=== PATIENT | female | born 1960 | race Caucasian/White ===

== ENCOUNTER 2022-03-20 01:42 | Emergency (ER) | payer BC, SELFPAY ==
[2022-03-20 01:56] VITALS: BP 192/92; PULSE 96; RESP 16; TEMP 37.1; O2SAT 98; BMI 26.6
--- NOTE | 2022-03-20 02:07 | ED_ITS ---
HPI - General Adult General Chief complaint: Extremity Injury, Upper Stated complaint: right shoulder pain Time Seen by Provider: 03/20/22 01:46 Source: patient and family Mode of arrival: Ambulatory Limitations: no limitations History of Present Illness HPI narrative: 61-year-old female is here for evaluation of right shoulder pain. She is visiting the area. She recently fluid and air craft. Afterwards started to have right-sided upper back/shoulder discomfort and is now having discomfort on the front and lateral portion of her right shoulder. There was no specific incident that caused the discomfort. Is now having problems with moving her shoulder. Has tried Tylenol ibuprofen an aspirin without any improvement. No fevers. Her right wrist and right elbow unremarkable. No chest discomfort. No skin changes. Related Data Allergies Allergy/AdvReac Type Severity Reaction Status Date / Time Sulfa (Sulfonamide Allergy Hives Verified 03/20/22 01:55 Antibiotics) Review of Systems Constitutional Constitutional: Reports system reviewed and no additional complaints, except as documented Musculoskeletal Musculoskeletal: Reports system reviewed and no additional complaints, except as documented Integumentary/Breasts Skin/Breast: Reports system reviewed and no additional complaints, except as documented Neurologic Neurologic: Reports system reviewed and no additional complaints, except as documented Hematologic/Lymphatic On Anticoagulants: No Patient History Medical History Healthy adult Social History Smoking Status: Never smoker Smoking Status: Never smoker Substance Use Type: does not use Exam Initial Vital Signs Initial Vital Signs: Vital Signs Temperature 98.7 F 03/20/22 01:56 Pulse Rate 96 H 03/20/22 01:56 Respiratory Rate 16 03/20/22 01:56 Blood Pressure 192/92 H 03/20/22 01:56 Pulse Oximetry 98 03/20/22 01:56 Oxygen Delivery Method 03/20/22 01:56 HENCA Head: normal to inspection and normocephalic Resp Effort & Inspection: normal respiratory effort Cardio Pulses: radial pulses present on the right Skin General: no rashes or lesions noted Neuro Sensory Exam: no sensory deficits noted Extrem Other: Right elbow and right wrist are unremarkable. Has tenderness along the lateral aspect of the right shoulder. Not specifically over the AC joint however more so over the deltoid. No tenderness along the biceps tendon. No tenderness along the supraspinatus or infraspinatus muscle bellies. No tenderness along the rhomboids. No tenderness over the clavicle. No tenderness over the p ectoralis muscle. Has fairly extreme discomfort with any movement of the right shoulder. There is an area of pinpoint tenderness along the anterior lateral aspect of the right shoulder. Course Orders Ordered: ED Orders 03/20/22 03:31 XR shoulder RT min 2V Stat Discontinued Medications Hydrocodone Bitart/Acetaminophen (Hydrocodone/Acet 5/325 Tablet) 1 tab PO NOW ONE Stop: 03/20/22 02:09 Last Admin: 03/20/22 02:13 Dose: 1 tab Documented By: STEF Hydrocodone Bitart/Acetaminophen (Hydrocodone/Acet 5/325 Prepack) 1 bottle MISC SEEINSTR ONE Stop: 03/20/22 04:07 Last Admin: 03/20/22 04:12 Dose: 1 bottle Documented By: STEF Cyclobenzaprine HCl (Cyclobenzaprine 10 Mg Prepack) 1 bottle MISC SEEINSTR ONE Stop: 03/20/22 04:07 Last Admin: 03/20/22 04:12 Dose: 1 bottle Documented By: STEF Hydromorphone HCl (Hydromorphone 1 Mg Inj) 1 mg IM NOW ONE Stop: 03/20/22 02:47 Last Admin: 03/20/22 02:57 Dose: 1 mg Documented By: ANNE-MARIE Ondansetron HCl (Ondansetron 4 Mg Odt) 4 mg SL NOW ONE Stop: 03/20/22 02:47 Last Admin: 03/20/22 02:57 Dose: 4 mg Documented By: ANNE-MARIE Vital Signs Vital signs: Vital Signs - 8 hr 03/20/22 01:56 03/20/22 04:19 Temperature 98.7 F Pulse Rate 96 H 78 Respiratory Rate 16 17 Blood Pressure 192/92 H 166/76 H Pulse Oximetry 98 96 Oxygen Delivery Method Room Air Room Air Medical Decision Making Imaging Data Extremity x-ray #1: Radiologist's Impression: Normal right shoulder MDM Narrative Medical decision making narrative: Attempted a trigger point injection as she did seem to have an area of maximal tenderness along the anterior lateral aspect. 2 cc of 2% lidocaine were injected in this area and the patient had no improvement of symptoms. Oral pain medication unhelpful as well. Was given Dilaudid and this seemed to help her symptoms somewhat however she did seem to have waves of discomfort. Still had quite a bit of discomfort with any sort of movement. X-ray shows no signs of fracture. I do have a very strong suspicion this is musculoskeletal based on her presentation today however I did inform her that there could be other etiologies such as an infection although she is afebrile and there is no skin changes over the area. We will hold on blood work for now and treat this conservatively however the patient and her who is at bedside were informed that if her symptoms do not improve with these measures she does need to be re-evaluated and potentially have lab work performed. She expressed understanding and agreement. Discharge Plan Departure Patient Disposition: Home Clinical Impression: Right shoulder pain Instructions: How to Use a Sling, DI for Shoulder Pain Activity Restrictions/Additional Instructions: The x-ray today did not show any signs of a fracture. I have a very high suspicion that this is just a muscular issue most likely caused by your travel however there are other potential issues such as infections which given your presentation today I feel is unlikely. Take the medications as directed however if you start to develop fevers or skin changes or if your symptoms are not improving you do need to be re-evaluated. Visit Report Forms: Patient Portal/API
[2022-03-20] MEDS: HYDROCODONE/ACET 5/325 TABLET 1 TAB PO (02:13)
[2022-03-20] MEDS: ONDANSETRON 4 MG ODT SL (02:57)
[2022-03-20] MEDS: HYDROMORPHONE 1 MG INJ IM (02:57)
--- NOTE | 2022-03-20 03:31 | DI.RAD.S_ITS ---
PROCEDURE: XR SHOULDER RT MIN 2V INDICATIONS: pain with movement TECHNIQUE: 3 views of the shoulder were acquired. COMPARISON: None. FINDINGS: Bones: No fractures or dislocations. Mild acromioclavicular joint and glenohumeral joint osteoarthritic changes are seen with joint space narrowing and subchondral sclerosis. No suspicious bony lesions. Visualized ribs appear intact. Soft tissues: No suspicious soft tissue calcifications. IMPRESSION: No shoulder fracture or dislocation. No gross soft tissue abnormality. Mild shoulder joint osteoarthritis. No significant discrepancies from preliminary reading. Dictated by: Arpit Franks M.D. on 03/20/2022 at 8:10 Approved by: Arpit Franks M.D. on 03/20/2022 at 8:11
[2022-03-20] MEDS: CYCLOBENZAPRINE 10 MG PREPACK 1 BOTTLE MISC (04:12)
[2022-03-20] MEDS: HYDROCODONE/ACET 5/325 PREPACK 1 BOTTLE MISC (04:12)
[2022-03-20 04:19] VITALS: BP 166/76; PULSE 78; RESP 17; O2SAT 96
== END 2022-03-20 04:20 | disposition home or self-care (01) ==
PROVIDERS: Emergency Provider Emergency Medicine
DX: M25.511 Pain in right shoulder (principal)
CPT/HCPCS: 73030; 96372; 99283; 99284; J1170